=== PATIENT | male | born 1985 | race African-American/Black ===

== ENCOUNTER 2017-02-23 05:59 | Emergency (ER) | payer MEDICAID ==
[~2017-02-23] VITALS: Ht 172.7 cm; Wt 85.0 kg
[~2017-02-23 05:59] MED LIST: FAMO40TA35 PO; NAPR-217 PO; RANI150C12 PO
[2017-02-23 06:29] VITALS: BP 130/80
== END 2017-02-23 07:20 | disposition home or self-care (01) ==
LOC: ER 06:00
DX: K08.89 Other specified disorders of teeth and supporting structures (principal); H66.93 Otitis media, unspecified, bilateral; F17.210 Nicotine dependence, cigarettes, uncomplicated; F12.10 Cannabis abuse, uncomplicated; Z79.899 Other long term (current) drug therapy
CPT/HCPCS: 99283

== ENCOUNTER 2017-07-21 10:34 | Emergency (ER) | payer MEDICAID ==
[~2017-07-21] VITALS: Ht 175.3 cm; Wt 84.0 kg
[~2017-07-21 10:34] MED LIST changes: -FAMO40TA35 PO; +FAMO40TA70 PO; -NAPR-217 PO; +NAPR500T PO
[2017-07-21] MEDS ORDERED: KETOROLAC 30MG/ML VIAL IV STA (17:04)
[2017-07-21 17:42] LABS: BASOPHILS % 1.8 % (0.0-2.0); EOSINOPHILS % 2.8 % (0.0-5.0); HEMATOCRIT. 41.7 % (42.0-52.0); HEMOGLOBIN. 13.8 g/dL (14.0-18.0); LYMPHOCYTES % 47.9 % (20.0-50.0); MEAN CORPUSCULAR HEMOGLOBIN 27.4 pg (28.0-32.0); MEAN CORPUSCULAR VOLUME 82.6 fL (80.0-94.0); MEAN PLATELET VOLUME 7.4 fl (7.4-10.4); MONOCYTES % 5.1 % (2.0-8.0); NEUTROPHILS % 42.4 % (40.0-76.0); PLATELET 349 x1000/uL (130-400); RED BLOOD CELL COUNT 5.05 mill/uL (4.7-6.1); RED CELL DISTRIBUTION WIDTH 14.7 % (11.6-14.6)
[2017-07-21 17:51] LABS: CHLORIDE 104 mEq/L (98-107)
[2017-07-21 17:51] LABS: CLARITY URINE CLEAR (CLEAR); COLOR URINE YELLOW (YELLOW); GLUCOSE URINE NEGATIVE (NEGATIVE); KETONES URINE NEGATIVE (NEGATIVE); LEUKOCYTE ESTERASE URINE NEGATIVE (NEGATIVE); NITRITE URINE NEGATIVE (NEGATIVE); OCCULT BLOOD URINE NEGATIVE (NEGATIVE); PROTEIN URINE NEGATIVE (NEGATIVE); SPECIFIC GRAVITY URINE 1.014 (1.005-1.030); UROBILINOGEN URINE 0.2 E.U./dL (0.2-1.0)
[2017-07-21 17:57] LABS: CARBON DIOXIDE 29 mEq/L (21-32)
[2017-07-21 18:03] LABS: *AMPHETAMINES SCREEN URINE PRESUMTIVE POSITIVE (NEGATIVE); *BARBITURATES SCREEN URINE NEGATIVE (NEGATIVE); *BENZODIAZEPINES SCREEN URINE NEGATIVE (NEGATIVE); *COCAINE SCREEN URINE NEGATIVE (NEGATIVE); CANNABINOID URINE SCREEN PRESUMTIVE POSITIVE (NEGATIVE); METHADONE URINE SCREEN NEGATIVE (NEGATIVE); OPIATES URINE SCREEN PRESUMTIVE POSITIVE (NEGATIVE); PHENCYCLIDINE URINE SCREEN NEGATIVE (NEGATIVE)
[2017-07-21 18:53] VITALS: BP 113/76
== END 2017-07-21 20:39 | disposition home or self-care (01) ==
LOC: ER 10:34
DX: N43.3 Hydrocele, unspecified (principal); F17.200 Nicotine dependence, unspecified, uncomplicated; F12.10 Cannabis abuse, uncomplicated
CPT/HCPCS: 36415; 76705; 76870; 80053; 80305; 81003; 83690; 85025; 93976; 96374; 99285; J1885; Z7610

== ENCOUNTER 2017-07-26 04:04 | Emergency (ER) | payer MEDICAID ==
[~2017-07-26] VITALS: Ht 175.3 cm; Wt 82.0 kg
[2017-07-26 04:26] VITALS: BP 128/89
== END 2017-07-26 08:09 | disposition left against medical advice (07) ==
LOC: ER 04:04
DX: Z00.8 Encounter for other general examination (principal); Z53.21 Procedure and treatment not carried out due to patient leaving prior to being seen by health care provider

== ENCOUNTER 2017-07-29 21:00 | Emergency (ER) | payer MEDICAID ==
[~2017-07-29] VITALS: Ht 175.3 cm; Wt 84.0 kg
[2017-07-30 00:19] VITALS: BP 121/84
== END 2017-07-30 00:36 | disposition home or self-care (01) ==
LOC: ER 21:03
DX: H01.004 Unspecified blepharitis left upper eyelid (principal); H10.022 Other mucopurulent conjunctivitis, left eye; F17.210 Nicotine dependence, cigarettes, uncomplicated; F12.10 Cannabis abuse, uncomplicated
CPT/HCPCS: 99283

== ENCOUNTER 2017-08-03 11:55 | Emergency (ER) | payer MEDICAID ==
[~2017-08-03] VITALS: Ht 175.3 cm; Wt 74.0 kg
[2017-08-03 12:04] VITALS: BP 153/91
== END 2017-08-03 18:29 | disposition left against medical advice (07) ==
LOC: ER 11:55
DX: N50.812 Left testicular pain (principal); Z53.21 Procedure and treatment not carried out due to patient leaving prior to being seen by health care provider

== ENCOUNTER 2018-02-22 14:22 | Emergency (ER) | payer MEDICAID ==
[~2018-02-22] VITALS: Ht 175.3 cm; Wt 83.0 kg
[~2018-02-22 14:22] MED LIST changes: +NAPR-1176 PO; -NAPR500T PO
[2018-02-22 14:40] VITALS: BP 123/72
[2018-02-22 16:42] LABS: BASOPHILS % 1.1 % (0.0-2.0); EOSINOPHILS % 3.2 % (0.0-5.0); HEMATOCRIT. 40.6 % (42.0-52.0); HEMOGLOBIN. 13.5 g/dL (14.0-18.0); LYMPHOCYTES % 38.9 % (20.0-50.0); MEAN CORPUSCULAR HEMOGLOBIN 27.5 pg (28.0-32.0); MEAN PLATELET VOLUME 7.6 fl (7.4-10.4); MONOCYTES % 5.1 % (2.0-8.0); NEUTROPHILS % 51.7 % (40.0-76.0); PLATELET 330 x1000/uL (130-400); RED BLOOD CELL COUNT 4.89 mill/uL (4.7-6.1)
[2018-02-22 16:47] LABS: CHLORIDE 103 mEq/L (98-107)
[2018-02-22 16:52] LABS: ETHANOL BLOOD < 10 mg/dL
== END 2018-02-23 00:22 | disposition left against medical advice (07) ==
LOC: ER 16:16
DX: B99.8 Other infectious disease (principal)
CPT/HCPCS: 36415; 80048; 85025; 99284; G0482

== ENCOUNTER 2018-04-27 08:41 | Emergency (ER) | payer MEDICAID ==
[~2018-04-27] VITALS: Ht 175.3 cm; Wt 81.0 kg
[2018-04-27 14:39] LABS: BASOPHILS % 1.1 % (0.0-2.0); EOSINOPHILS % 3.2 % (0.0-5.0); HEMATOCRIT. 40.3 % (42.0-52.0); HEMOGLOBIN. 13.1 g/dL (14.0-18.0); LYMPHOCYTES % 44.9 % (20.0-50.0); MEAN CORPUSCULAR HEMOGLOBIN 27.3 pg (28.0-32.0); MEAN CORPUSCULAR VOLUME 83.8 fL (80.0-94.0); MEAN PLATELET VOLUME 7.8 fl (7.4-10.4); MONOCYTES % 5.8 % (2.0-8.0); PLATELET 308 x1000/uL (130-400); RED BLOOD CELL COUNT 4.81 mill/uL (4.7-6.1); RED CELL DISTRIBUTION WIDTH 14.6 % (11.6-14.6)
[2018-04-27 14:44] LABS: CHLORIDE 104 mEq/L (98-107)
[2018-04-27 16:08] VITALS: BP 116/81
== END 2018-04-27 16:10 | disposition home or self-care (01) ==
LOC: ER 08:41
DX: K59.00 Constipation, unspecified (principal); F12.10 Cannabis abuse, uncomplicated
CPT/HCPCS: 36415; 80053; 85025; 99284